=== PATIENT | female | born 1930 | race Caucasian/White ===

== ENCOUNTER → 2019-12-24 | Day surgery (SDC) | payer OTHER ==
[2019-12-21 12:47] LABS: BASOPHILS % 0.7 % (0.0-1.0); EOSINOPHILS # (AUTO) 0.2 (0.0-0.4); EOSINOPHILS % 3.9 % (0.0-6.0); HEMATOCRIT 40.2 % (34.2-44.1); HEMOGLOBIN 12.9 g/dL (12.0-16.0); LYMPHOCYTES # (AUTO) 1.7 (1.0-3.2); LYMPHOCYTES % 31.5 % (18.0-39.1); MEAN CORPUSCULAR HEMOGLOBIN 28.2 pg (28-32); MEAN CORPUSCULAR HGB CONC 32.1 g/dL (31-35); MEAN CORPUSCULAR VOLUME 87.8 fL (81-99); MONOCYTES # (AUTO) 0.6 (0.2-0.8); MONOCYTES % 10.2 % (4.4-11.3); NEUTROPHILS # (AUTO) 2.9 (2.1-6.9); NEUTROPHILS % 53.5 % (38.7-80.0); PLATELET COUNT 154 x10e3/uL (140-360); RED BLOOD COUNT 4.58 x10e6/uL (3.6-5.1); RED CELL DISTRIBUTION WIDTH 12.9 % (11.7-14.4)
[~2019-12-24] MED LIST: ALENDRONATE SOD70 MG PO; CALCIUM 500+D1 EACH PO; COQ-1030 MG PO; LUTEIN20 MG PO; METOPROLOL SUCC50 MG PO; MULTI-VITAMIN1 EACH PO; OMEPRAZOLE20 M1 PO; PROPOFOL IV EMULSION 10 MG/ML 20 ML VIAL ONE; TUMERIC PO; XARELTO15 MG PO
--- OUTSIDE RECORDS SUMMARY | 2019-12-24 06:27 | XMS REPORT ---
Author Author [facility] Organization [facility] Address [address] [place] [address] Phone Unavailable Care Team Providers Care Foster Care Case Manager Name Role Phone Nandini FLORES Attphys Unavailable Problems This patient has no known problems. Allergies, Adverse Reactions, Alerts This patient has no known allergies or adverse reactions. Medications This patient has no known medications. Procedures This patient has no known procedures. Encounters Start Date/Time End Date/Time Encounter Type [facility] Encounter ID Source 2019-07-06 11:03:00 2019-07-06 11:03:00 Emergency E [id number] 2019-06-30 11:32:00 2019-06-30 11:32:00 Outpatient [facility] [id number] Results Test Description Test Time Test Comments Results Result Comments Source SCR MAMM BILATERAL MINAL CAD DIGITAL 2018-11-20 13:42:16 - SCR MAMM BILATERAL MINAL CAD DIGITALBILATERAL DIGITAL SCREENING MAMMOGRAM 3D/2D WITH CAD: 11/20/2018CLINICAL: Asymptomatic. Digital breast tomosynthesis was performed in addition to routine CC and MLO views. Current mammographic images were evaluated by either a [employer]app M-Vu or a [employer] ImageChecker CAD (computer aided detection system). Comparison is made to exams dated 11/19/2017 mammogram, 2016 mammogram, and 11/10/2015 mammogram - [facility]. The tissue of both breasts is extremely dense, which lowers the sensitivity of mammography. No suspicious mass, architectural distortion, malignant type calcification, or lymph node abnormality detected. IMPRESSION: NEGATIVEUltrasound pending for additional evaluation. There is no mammographic evidence of malignancy. Yoly Coppola M.D. dm/penrad:11/20/2018 13:42:16 Entry: - 11/22/2018 08:52:21Imaging Technologist: Tanna Flores , [facility] BI-[facility]ADS: 1 Negative BREAST ULTRASOUND BILATERAL 2018-11-20 13:11:14 - BREAST ULTRASOUND BILATERALULTRASOUND OF BOTH BREASTS AND BOTH AXILLA: 11/20/2018CLINICAL: Supplemental Screening for Dense Breast. Comparison is made to exams dated 11/20/2018 mammogram, 11/19/2017 ultrasound, 11/19/2017 mammogram, 11/12/2016 ultrasound, [facility] Real-time ultrasound of both breasts and both axilla was performed. No abnormalities were seen sonographically in the left breast or either axilla. Benign cysts and dilated ducts were seen in the right breast. No solid masses were seen. Clinical breast exam was unremarkable. IMPRESSION: BENIGN There is no sonographic evidence of malignancy. Patient has been informed that she has areas of dense breast tissue that could make it difficult to find a small cancer. A screening mammogram and supplemental ultrasound for dense breast tissue is recommended in 1 year.Yoly Coppola M.D. dm/:11/20/2018 13:11:14 Senior Data Quality Analyst: Lissa FELIX, [facility] BIRADS 1-2 Combo FU Letter Ultrasound BI-RADS: 2 Benign CHEST 2 VIEWS [place] [address] Patient Name: JADA LYNN MR #: [id number] : 1930 Age/Sex: 87/F Req #: [id number] Adm Physician: Ordered by: LILIAM FLORES MD Report #: [id number] Location: OR Room/Bed: Procedure: [id number] DX/CHEST 2 VIEWS Exam Date: 07/12/17 Exam Time: 1220 REPORT STATUS: Signed PROCEDURE: Frontal and lateral views of the chest. COMPARISON: None. INDICATIONS: PREOPERATIVE CHEST XRAY FOR G[facility]STONE SURGERY FINDINGS: Lines/tubes: None. Lungs: The lungs are well inflated. Calcified granuloma in the right lung base. Mild left basilar atelectasis or scarring. Mild biapical scarring. There is no evidence of pneumonia or pulmonary edema. Pleura: There is no pleural effusion or pneumothorax. Heart and mediastinum: Calcified hilar lymph nodes. The cardiac silhouette is normal. Bones: No acute bony abnormality. IMPRESSION: No acute cardiopulmonary disease. Dictated by: Trace Strange M.D. on 07/12/2017 at 13:17 Electronically approved by: Trace Strange M.D. on 07/12/2017 at 13:17 Dictated By: TRACE STRANGE MD [id number] Transcribed By: CARSON on 07/12/17 1317 COPY TO: LILIAM FLORES MD
[2019-12-24 08:35] VITALS: BP 129/72
== END | disposition home or self-care (01) ==
LOC: OR 06:12
PROVIDERS: ATTEND Internal Medicine Gastroenterology
DX: Z09 Encounter for follow-up examination after completed treatment for conditions other than malignant neoplasm (principal); Z86.010 Personal history of colon polyps; K57.30 Diverticulosis of large intestine without perforation or abscess without bleeding; K64.1 Second degree hemorrhoids; I48.91 Unspecified atrial fibrillation; I25.10 Atherosclerotic heart disease of native coronary artery without angina pectoris; I10 Essential (primary) hypertension; I25.2 Old myocardial infarction; Z88.0 Allergy status to penicillin; Z88.2 Allergy status to sulfonamides; Z01.810 Encounter for preprocedural cardiovascular examination; Z01.812 Encounter for preprocedural laboratory examination; Z11.59 Encounter for screening for other viral diseases; Z79.02 Long term (current) use of antithrombotics/antiplatelets; Z95.0 Presence of cardiac pacemaker; Z80.0 Family history of malignant neoplasm of digestive organs
CPT/HCPCS: 36415; 45378; 85025; 87635; 93005

== ENCOUNTER 2021-09-23 14:13 | Emergency (ER) | payer OTHER ==
[~2021-09-23] VITALS: Ht 167.6 cm; Wt 61.7 kg
[~2021-09-23 14:13] MED LIST changes: -PROPOFOL IV EMULSION 10 MG/ML 20 ML VIAL ONE
[2021-09-23] MEDS ORDERED: VENTOLIN HFA18 GM INH (17:43)
== END 2021-09-23 18:08 | disposition home or self-care (01) ==
LOC: FSED 14:54
DX: R05.9 Cough, unspecified (principal); R07.89 Other chest pain; J98.01 Acute bronchospasm; J06.9 Acute upper respiratory infection, unspecified; K21.9 Gastro-esophageal reflux disease without esophagitis; I48.20 Chronic atrial fibrillation, unspecified; E03.9 Hypothyroidism, unspecified; F41.9 Anxiety disorder, unspecified; R94.31 Abnormal electrocardiogram [ECG] [EKG]
CPT/HCPCS: 71046; 80053; 81003; 82553; 83518; 83880; 84484; 85025; 85379; 87400; 93005; 99283; U0002